=== PATIENT | male | born 2000 | race Two or more races ===

== ENCOUNTER 2018-07-22 08:32 | Emergency (ER) | payer SELFPAY ==
[~2018-07-22 08:32] MED LIST: NO ROUTINE MEDS
[2018-07-22 08:36] VITALS: BP 153/99
[2018-07-22] MEDS ORDERED: CHOL10005 PO (08:41)
--- NOTE | 2018-07-22 08:56 | ER Report ---
History and Physical Time Seen By MD: 08:55 Hx. of Stated Complaint: CYST ON R INNER THIGH HPI/ROS CHIEF COMPLAINT: Tender lump on inner right thigh HISTORY OF PRESENT ILLNESS: Patient presents with complaint of tender lump to inner right thigh, patient states he never experienced this before. No fevers or chills. Denies injury. Last tetanus patient unsure. Allergies: Coded Allergies: No Known Allergies (Verified Allergy, Mild, 10/24/10) Home Meds Active Scripts Hydrocodone Bit/Acetaminophen (HYDROCODON-ACETAMINOPHEN 5-325) 1 Each Tablet, 1 EACH PO Q4H PRN for PAIN, #15 TAB 0 Refills TAKE ONE TABLET BY MOUTH EVERY 4-6 HOURS NEEDED FOR PAIN Prov:SUNNY WEINBERG MD 07/22/18 Reported Medications Cholecalciferol (Vitamin D3) (VITAMIN D3) 1,000 Unit Tablet, 1000 UNIT PO, TAB 07/22/18 Discontinued Reported Medications [No Routine Meds] No Conflict Check, 0 Refills 10/24/10 Hx Smoking: No Hx Substance Use Disorder: No Hx Alcohol Use: No Constitutional Vital Sign - Last 24 Hours 07/22/18 08:36 Temp 98.6 Pulse 94 Resp 16 B/P (MAP) 153/99 Pulse Ox 95 O2 Delivery Room Air Physical Exam Examination of the right inner thigh shows a fluctuant mass that is approximately the size of a marble. The area is tender there is some overlying erythema without extension of erythema beyond the lump. Medical Decision Making ED Course/Re-evaluation ED Course 07/22/2018 8:56:04 am Patient was draped and prepped in the usual sterile fashion. Approximately 5 MLS of 2% Xylocaine with epinephrine was injected to perform a field block around the suspected abscess. A 1 cm incision was made using an 11 blade with return of nicky pus and blood. Approximately 3 cm of gauze was packed his wound after expectoration with saline soaked sterile cotton-tipped applicator and loculations broken up. Wound was then dressed. Patient was instructed to follow- up in 48-72 hours for wound reevaluation and likely packing removal. There are no secondary signs of complication or infection so antibiotics will be withheld at this stage. Decision to Disposition Date: Jul 22, 2018 Decision to Disposition Time: 09:08 Depart Departure Latest Vital Signs Vital Signs Date Time Temp Pulse Resp B/P (MAP) Pulse Ox O2 Delivery O2 Flow Rate FiO2 07/22/18 08:36 98.6 94 16 153/99 95 Room Air Impression: Primary Impression: Encounter for incision and drainage procedure Condition: Improved Disposition: HOME OR SELF-CARE New Scripts Hydrocodone Bit/Acetaminophen (HYDROCODON-ACETAMINOPHEN 5-325) 1 Each Tablet 1 EACH PO Q4H PRN for PAIN, #15 TAB 0 Refills TAKE ONE TABLET BY MOUTH EVERY 4-6 HOURS NEEDED FOR PAIN Prov: SUNNY WEINBERG MD 07/22/18 Patient Instructions: Incision and Drainage (ED) Additional Instructions: return in 48-72 hours for wound check and possible packing removal. Return sooner if you develop fever, worsening pain, or expanding redness from wound SUNNY WEINBERG MD Jul 22, 2018 08:56
[2018-07-22] MEDS ORDERED: DIPHTH/TETANUS/ACEL. PERTUSSIS IM ONLY ONE (09:00)
[2018-07-22] MEDS ORDERED: LOR5/325 PO (09:09)
== END 2018-07-22 09:20 | disposition home or self-care (01) ==
LOC: ER 08:42
DX: R22.41 Localized swelling, mass and lump, right lower limb (principal)
CPT/HCPCS: 90471; 90715; 99283

== ENCOUNTER 2018-07-25 09:05 | Emergency (ER) | payer SELFPAY ==
[~2018-07-25 09:05] MED LIST changes: +CHOL10005 PO; +LOR5/325 PO
--- NOTE | 2018-07-25 09:07 | ER Report ---
History and Physical Time Seen By MD: 09:07 HPI/ROS CHIEF COMPLAINT: Wound check HISTORY OF PRESENT ILLNESS: Patient returns for wound check and packing removal from a right medial thigh abscess that was drained approximately 3 days ago. Reports no interim problems or concerns. Allergies: Coded Allergies: No Known Allergies (Verified Allergy, Mild, 07/25/18) Home Meds Active Scripts Hydrocodone Bit/Acetaminophen (HYDROCODON-ACETAMINOPHEN 5-325) 1 Each Tablet, 1 EACH PO Q4H PRN for PAIN, #15 TAB 0 Refills TAKE ONE TABLET BY MOUTH EVERY 4-6 HOURS NEEDED FOR PAIN Prov:SUNNY WEINBERG MD 07/22/18 Reported Medications Cholecalciferol (Vitamin D3) (VITAMIN D3) 1,000 Unit Tablet, 1000 UNIT PO, TAB 07/22/18 Discontinued Reported Medications [No Routine Meds] No Conflict Check, 0 Refills 10/24/10 Past Medical/Surgical History Noncontributory Hx Smoking: No Hx Substance Use Disorder: No Hx Alcohol Use: No Constitutional Vital Sign - Last 24 Hours 07/25/18 09:11 Temp 99.8 Pulse 90 Resp 16 B/P (MAP) 140/98 Pulse Ox 92 O2 Delivery Room Air Physical Exam Examination of the wound reveals no overlying erythema the induration has improved. Packing was removed as there was no significant purulent discharge noted. Medical Decision Making ED Course/Re-evaluation ED Course Plan is to To place bacitracin bandage and have patient can do wound care at home, no need for further follow-up unless complication arises. Decision to Disposition Date: Jul 25, 2018 Decision to Disposition Time: 09:14 Depart Departure Latest Vital Signs Vital Signs Date Time Temp Pulse Resp B/P (MAP) Pulse Ox O2 Delivery O2 Flow Rate FiO2 07/25/18 09:11 99.8 90 16 140/98 92 Room Air Impression: Primary Impression: Wound check, abscess Condition: Improved Disposition: HOME OR SELF-CARE Referrals: PANCHO DEL RIO MD (PCP) Patient Instructions: Acute Wound Care (ED) SUNNY WEINBERG MD Jul 25, 2018 09:07
[2018-07-25 09:11] VITALS: BP 140/98
== END 2018-07-25 09:29 | disposition home or self-care (01) ==
LOC: ER 09:21
DX: L02.415 Cutaneous abscess of right lower limb (principal)
CPT/HCPCS: 99281